=== PATIENT | female | born 1970 | race Caucasian/White ===

== ENCOUNTER 2021-07-12 06:52 | Day surgery (SDC) | payer OTHER ==
[2021-07-08 13:02] VITALS: BMI 21.4
[2021-07-12] MEDS ORDERED: PROPOFOL 20 ML ONE ×4 (07:52)
[2021-07-12] MEDS ORDERED: LIDOCAINE HCL/PF 2% SDV 5ML VIAL ONE (07:52)
[2021-07-12 08:47] VITALS: TEMP 97.1
[2021-07-12 09:01] VITALS: BP 101/60; PULSE 66
== END 2021-07-12 09:01 | disposition home or self-care (01) ==
LOC: FASU-ENDO 06:52
PROVIDERS: ATTEND Internal Medicine Gastroenterology
PROC: 0DBN8ZX Excision of Sigmoid Colon, Via Natural or Artificial Opening Endoscopic, Diagnostic (ICD-10-PCS; principal; 2021-07-12 08:19)
DX: Z12.11 Encounter for screening for malignant neoplasm of colon (principal); D12.5 Benign neoplasm of sigmoid colon; Z83.71 Family history of colonic polyps; K57.30 Diverticulosis of large intestine without perforation or abscess without bleeding
CPT/HCPCS: 88305-TC